=== PATIENT | male | born 1970 | race Caucasian/White ===

== ENCOUNTER 2019-09-21 19:03 | Inpatient (IN) | payer BC, MEDICAID ==
[~2019-09-21] VITALS: Ht 182.9 cm; Wt 102.1 kg
[~2019-09-21 19:03] MED LIST: ATO40T PO; CARV3.1240 PO; COEN100C37 PO; FAMO-12 PO; KRIL300C2 PO; TICA90TA PO; VENL150C2 PO
[2019-09-21 21:04] LABS: Basophils # (auto) 0 uL; Basophils % (auto) 0.3 % (0.0-2.0); Eosinophils # (auto) 0.3 uL; Eosinophils % (auto) 3.3 % (0.0-7.0); Hematocrit 42.2 % (41.0-53.0); Hemoglobin 14.2 g/dL (13.5-17.5); Lymphocytes # (auto) 3.4 uL; Mean Corpuscular Hemoglobin 31.9 pg (28.0-32.0); Mean Corpuscular Hgb Conc. 33.7 g/dL (32.0-36.0); Mean Corpuscular Volume 94.7 fL (80.0-100.0); Monocytes # (auto) 0.7 uL; Monocytes % (auto) 8.2 % (0.0-12.0); Neutrophils # (auto) 4.1 uL; Neutrophils % (auto) 48.2 % (37.0-80.0); Nucleated Red Blood Cells % 0.1 %; Platelet Count (auto) 240 10^3/uL (140-450); Red Blood Cells 4.46 10^6/uL (4.5-5.90); Red Cell Distribution Width 13.9 % (11.8-14.3); White Blood Cell 8.6 10^3/uL (4.4-10.8)
[2019-09-21 21:19] LABS: INR 0.94 (0.9-1.15); Partial Thromboplastin Time 26.8 sec (23.64-32.05)
[2019-09-21 21:21] LABS: Albumin 3.7 g/dL (3.4-5.0); BUN/Creatinine Ratio 17.8; Calcium 8.9 mg/dL (8.5-10.1); Magnesium 2.4 mg/dL (1.6-2.6); Potassium 3.6 mmol/L (3.5-5.1)
[2019-09-21 21:26] LABS: Bilirubin, Total 0.5 mg/dL (0.2-1.0); Total Protein 7.9 g/dL (6.4-8.2)
[2019-09-22] MEDS ORDERED: ACETAMINOPHEN 325 MG TAB PO PRN (05:45)
[2019-09-22] MEDS ORDERED: NITROGLYCERIN 0.4 MG SL TAB SL PRN (05:45)
[2019-09-22] MEDS ORDERED: TEMAZEPAM 15 MG CAP PO PRN (05:45)
[2019-09-22] MEDS ORDERED: MORPHINE SULF INJ 2 MG/ML SYRINGE 1ML IV PRN (05:45)
[2019-09-22] MEDS ORDERED: ALBUTEROL SULF 2.5 MG/0.5ML(0.5%) NEB SOLN NEB PRN (05:45)
[2019-09-22 06:52] VITALS: BP 124/64
[2019-09-22 08:43] LABS: Urine Bacteria FEW /hpf (None Seen); Urine Blood Negative /uL (Negative); Urine Specific Gravity 1.018 (1.001-1.035); Urine WBC <1 /hpf (0 - 3)
[2019-09-22 09:15] VITALS: BP 134/83
--- NOTE | 2019-09-22 09:15 | NUR ---
Telemetry admit from ER DENNIS CERON admitted to Telemetry unit. Patient oriented to JOSSE DAVIS, RN primary RN, to 238a and unit policies regarding patient care and visiting hours. Patient now on continuous telemetry monitoring, tele box # 4 and telemetry reading on arrival to unit is normal sinus reading. Patient weighed by bedscale and encouraged to call. Patient updated on plan of care and verbalized understanding. Will continue to monitor.
[2019-09-22] MEDS ORDERED: TICAGRELOR 90 MG TAB PO SCH (10:00)
[2019-09-22] MEDS ORDERED: FAMOTIDINE 20 MG TAB PO SCH (10:00)
[2019-09-22] MEDS ORDERED: CARVEDILOL 3.125 MG TAB PO SCH (10:00)
[2019-09-22] MEDS ORDERED: ASPirin 81 mg TAB PO SCH (10:00)
--- NOTE | 2019-09-22 11:05 | NUR ---
IV insertion IV access obtained, via clean sterile technique by inserting 20 gauge catheter on Right hand after 1 attempt. IV secured properly. No trauma to site. Patient tolerated well.
[2019-09-22 11:12] LABS: Cholesterol 134 mg/dL (< 200); Triglycerides 126 mg/dL (< 150)
[2019-09-22 11:15] LABS: HDL Cholesterol 34 mg/dL (40-59); LDL Cholesterol 90 mg/dL (< 100)
[2019-09-22] MEDS ORDERED: ASPI-231 PO (12:11)
[2019-09-22] MEDS ORDERED: CHOL400D2 PO (12:11)
[2019-09-22] MEDS ORDERED: RANI150C11 PO (12:11)
[2019-09-22] MEDS ORDERED: BREX1TAB4 PO (12:11)
[2019-09-22] MEDS ORDERED: METF-370 PO (12:11)
[2019-09-22] MEDS ORDERED: OLAN10TA23 PO (12:11)
[2019-09-22] MEDS ORDERED: BUPR150T6 PO (12:11)
[2019-09-22] MEDS ORDERED: VENL75TA PO (12:11)
--- NOTE | 2019-09-22 14:44 | NUR ---
ROUNDS Dr Gupat at bedside for rounds, new orders received and followed through. Patient updated on plan of care, verbalized understanding.
[2019-09-22 16:26] VITALS: BP 129/68
[2019-09-22 17:00] VITALS: BP 149/85
[2019-09-22] MEDS ORDERED: ATORVASTATIN 20 MG TAB PO SCH (22:00)
== END 2019-09-22 17:55 | disposition home or self-care (01) | DRG 144 ==
LOC: ER 19:03 → TELE 19:04 → TELE-EAST 09-22 09:00
PROVIDERS: ADMIT Nurse Practitioner; ATTEND Internal Medicine
DX: R06.03 Acute respiratory distress (principal); E78.5 Hyperlipidemia, unspecified; F41.9 Anxiety disorder, unspecified; I10 Essential (primary) hypertension; R73.03 Prediabetes; I25.10 Atherosclerotic heart disease of native coronary artery without angina pectoris; I25.2 Old myocardial infarction; Z95.5 Presence of coronary angioplasty implant and graft; Z81.1 Family history of alcohol abuse and dependence; Z82.0 Family history of epilepsy and other diseases of the nervous system; Z88.6 Allergy status to analgesic agent; Z79.899 Other long term (current) drug therapy; R79.89 Other specified abnormal findings of blood chemistry
CPT/HCPCS: 36415; 71046; 80053; 80061; 81001; 83036; 83735; 83880; 84484; 85025; 85379; 85610; 85730; 93306; G0378

== ENCOUNTER 2022-08-07 19:09 | Inpatient (IN) | payer MEDICAID ==
[~2022-08-07] VITALS: Ht 182.9 cm; Wt 92.0 kg
[~2022-08-07 19:09] MED LIST changes: +ASPI1TAB20 PO; +BREX1TAB4 PO; +BUPR300T28 PO; +CHOL400D2 PO; +METF-370 PO; +OLAN10TA PO; +RANI150C11 PO; -VENL150C2 PO; +VENL1TAB99 PO
[2022-08-07 20:28] LABS: Basophils # (auto) 0 10 ^3/uL (0-0.2); Basophils % (auto) 0.5 % (0.0-2.0); Eosinophils # (auto) 0.2 10 ^3/uL (0-0.8); Eosinophils % (auto) 3.5 % (0.0-7.0); Hematocrit 42.1 % (41.0-53.0); Hemoglobin 13.7 g/dL (13.5-17.5); Lymphocytes # (auto) 2.2 10 ^3/uL (0.4-5.4); Lymphocytes % (auto) 34.9 % (10.0-50.0); Mean Corpuscular Hemoglobin 30.1 pg (28.0-32.0); Mean Corpuscular Hgb Conc. 32.6 g/dL (32.0-36.0); Mean Corpuscular Volume 92.3 fL (80.0-100.0); Monocytes # (auto) 0.5 10 ^3/uL (0-1.3); Monocytes % (auto) 7.9 % (0.0-12.0); Neutrophils # (auto) 3.4 10 ^3/uL (1.6-8.6); Neutrophils % (auto) 53.2 % (37.0-80.0); Nucleated Red Blood Cells % 0.1 %; Red Blood Cells 4.56 10^6/uL (4.5-5.90); Red Cell Distribution Width 13.9 % (11.8-14.3); White Blood Cell 6.3 10^3/uL (4.4-10.8)
[2022-08-07 20:43] LABS: INR 0.93 (0.9-1.15); Partial Thromboplastin Time 25.9 sec (24.6-33.4)
[2022-08-07 20:47] LABS: Albumin 3.7 g/dL (3.4-5.0); BUN/Creatinine Ratio 7.9; Calcium 8.9 mg/dL (8.5-10.1); Potassium 3.9 mmol/L (3.5-5.1)
[2022-08-07 20:49] LABS: Bilirubin, Total 0.2 mg/dL (0.2-1.0); Total Protein 7.4 g/dL (6.4-8.2)
[2022-08-07] MEDS ORDERED: IOHEXOL 350 MG/ML 100ML IJ ONE (21:20)
[2022-08-08] MEDS ORDERED: ACETAMINOPHEN 325 MG TAB PO ONE (01:15)
[2022-08-08] MEDS ORDERED: DEXTROSE (50%) 50ML SYRG IV PRN (03:30)
[2022-08-08] MEDS ORDERED: ACETAMINOPHEN 325 MG TAB PO PRN (03:30)
[2022-08-08] MEDS ORDERED: ONDANSETRON HCL 4 MG/2 ML VIAL IV PRN (03:30)
[2022-08-08 05:19] LABS: Urine Bacteria NONE SEEN /hpf (None Seen); Urine Blood Negative /uL (Negative); Urine Specific Gravity 1.025 (1.001-1.035); Urine WBC <1 /hpf (0 - 3)
[2022-08-08 05:30] LABS: Alcohol, Urine < 3.0 mg/dL (0-10); Amphetamine Screen, Urine NEGATIVE (NEGATIVE); Barbiturate Scree,Urine NEGATIVE (NEGATIVE); Benzodiazephine Screen, Urine NEGATIVE (NEGATIVE); Cannabinoid Screen, Urine NEGATIVE (NEGATIVE); Cocaine Screen, Urine NEGATIVE (NEGATIVE); Opiate Scree,Urine NEGATIVE (NEGATIVE); Phencyclidine Screen, Urine NEGATIVE (NEGATIVE)
[2022-08-08] MEDS: InsuLIN REG 1unit/0.01ml Soln (100units/ml) SC SCH ×2 (06:49→11:30)
[2022-08-08] MEDS: ACCU-CHEK COMFORT CURVE STRIP VI SCH ×2 (06:49→11:30)
[2022-08-08] MEDS: ASPirin 81 mg TAB PO SCH ×2 (09:18→09:28)
[2022-08-08] MEDS: ENOXAPARIN SOD 40 MG/0.4 ML SYRINGE SC SCH ×2 (09:19→09:28)
[2022-08-08] MEDS ORDERED: buPROPion HCL 75 MG TAB PO SCH (10:00)
[2022-08-08] MEDS ORDERED: PANTOPRAZOLE 40 MG TAB PO SCH (10:00)
[2022-08-08] MEDS ORDERED: CARVEDILOL 3.125 MG TAB PO SCH (10:00)
[2022-08-08 12:00] VITALS: BP 132/82
[2022-08-08] MEDS ORDERED: ATORVASTATIN 20 MG TAB PO SCH (22:00)
[2022-08-09] MEDS ORDERED: NOREPINEPHRINE 8 MG/250ML KIT 250 ML IV ONE (05:20)
== END 2022-08-08 12:31 | disposition left against medical advice (07) | DRG 861 ==
LOC: ER 19:09 → EDBD 19:09 → OVERFLOW 08-08 03:26
PROVIDERS: ADMIT Nurse Practitioner; ATTEND Family Medicine
DX: R53.1 Weakness (principal); C85.90 Non-Hodgkin lymphoma, unspecified, unspecified site; Z94.84 Stem cells transplant status; E11.21 Type 2 diabetes mellitus with diabetic nephropathy; D64.9 Anemia, unspecified; E86.0 Dehydration; E11.40 Type 2 diabetes mellitus with diabetic neuropathy, unspecified; E78.5 Hyperlipidemia, unspecified; G20 Parkinson's disease; I10 Essential (primary) hypertension; I25.10 Atherosclerotic heart disease of native coronary artery without angina pectoris; Z53.29 Procedure and treatment not carried out because of patient's decision for other reasons; Z20.822 Contact with and (suspected) exposure to COVID-19; F32.A Depression, unspecified; E78.00 Pure hypercholesterolemia, unspecified; I25.2 Old myocardial infarction; Z95.5 Presence of coronary angioplasty implant and graft; Z82.49 Family history of ischemic heart disease and other diseases of the circulatory system; Z88.8 Allergy status to other drugs, medicaments and biological substances
CPT/HCPCS: 36415; 70496; 70551; 71045; 80053; 80307; 81001; 82550; 82962; 84484; 85025; 85610; 85730; 93005; G0378

== ENCOUNTER → 2024-11-30 | Outpatient (CLI) | payer MEDICAID ==
[~2024-11-30] VITALS: Ht 182.9 cm; Wt 93.0 kg
[~2024-11-30] MED LIST changes: -ATO40T PO; +ATOR-507 PO; +BUPR-581 PO; -BUPR300T28 PO
[2024-11-30] MEDS: REGADENOSON 0.4 MG/5 ML SYRG IV ONE ×2 (11:36)
--- NOTE | 2024-12-01 10:21 | DVHSR ---
APPROVED REPORT Exam: Nuclear Stress Test Indication: PRE OP CLEARANCE Stress Tech: FIDEL MARES Ht: 6 ft 0 in Wt: 205 lbs BSA: 2.15 m2 BMI: 27.80 Medical History Medical History: Diabetes, HTN, [place] S/P 3 STENTS, [place] LYMPHOMA Allergies: NIACIN Stress Test Details Stress Test: Pharmacologic stress testing performed using 0.4 mg of regadenoson per 5 mL given IV ov er 10 seconds. Reason for pharmacologic stress test: PRE OP CLEARANCE. HR Resting HR: 90 bpmMax Heart Rate (APMHR): 167.561858 bpm Max HR Achieved: 108 bpmTarget HR (85% APMHR): 141.159846 bpm % of APMHR: 64.67 Recovery HR: 93 bpm BP Resting BP: 125/79 mmHg Recovery BP: 121/71 mmHg ECG Resting ECG: Sinus Rhythm Clinical Reason for Termination: Completed protocol Nurse Comments Received patient from Nuclear Medicine. Patient is A&O x4 and on RA. FOR VS please refer back to st ress test assessment documentation. Patient is connected to front desk monitor. See cardio-neuro proce dural notes for addtional details. PIV flushes well. Reviewed POC and patient verbalizes understand ing and consents to test. Lexiscan stress test performed per protocol. diazo technician administered the Cardiolite. Pat ient tolerated well and vitals returned to baseline. Transferred to Nuclear Medicine via wheelchair with tech in stable condition. Stress ECG Conclusion no severe stress induced ischemia noted cont medical management for patient NM EXAM: Myocardial Perfusion REST/STRESS Imaging Protocol: Rest Tc-99m/Stress Tc-99m 1 day Resting Data Rest SPECT myocardial perfusion imaging was performed in supine position 60 minutes following the int ravenous injection of 14.7 mCi of Tc-99m Sestamibi. Time of rest injection: 1025 Time of rest imagin Administration Route: IV Administration Site: Left Hand Pharmacologic Stress Pharmacologic stress test was performed by injecting Regadenoson 0.4 mg IV push followed by the intra venous injection of 35.5 mCi of Tc-99m Sestamibi. Time of stress injection: 1130 Time of stress imagin Administration Route: IV Administration Site: Left Hand Gated Stress SPECT was performed 60 minutes after stress injection. The images were gated to evaluate regional wall motion and calculate left ventricular ejection fracti on. Stress only was performed in the Supine position. Nuclear Conclusion ECG Findings: negative for ischemia Nuclear Findings: negative for ischemia Left Ventricular Function: abnormal no severe stress induced ischemia noted cont medical management for patient
== END | disposition home or self-care (01) ==
LOC: XYW 10:36
PROVIDERS: ATTEND Internal Medicine
DX: Z01.810 Encounter for preprocedural cardiovascular examination (principal); I25.10 Atherosclerotic heart disease of native coronary artery without angina pectoris; I25.118 Atherosclerotic heart disease of native coronary artery with other forms of angina pectoris; R42 Dizziness and giddiness; I11.0 Hypertensive heart disease with heart failure; I50.9 Heart failure, unspecified; E11.9 Type 2 diabetes mellitus without complications; R06.02 Shortness of breath; R00.2 Palpitations; R07.89 Other chest pain; Z68.27 Body mass index [BMI] 27.0-27.9, adult; F15.90 Other stimulant use, unspecified, uncomplicated; Z88.8 Allergy status to other drugs, medicaments and biological substances
CPT/HCPCS: 78452; 93017; A9500; J2785